=== PATIENT | female | born 1990 | race Caucasian/White ===

== ENCOUNTER 2022-10-12 16:33 | Inpatient (IN) | payer BC ==
[~2022-10-12 16:33] MED LIST: Bupivacaine/Epinephrine 0.25% 30 ML VIAL ONE; Lidocaine 2% PF 5 ML VIAL ONE
[2022-10-12] MEDS: Lactated Ringer's 1,000 ML IV SCH ×2 (17:05→20:23)
[2022-10-12] MEDS ORDERED: Penicillin G Potassium 5 MILL.UNITS in Sodium Chloride 0.9% 100 ML IVPB SCH (17:10)
[2022-10-12] MEDS ORDERED: hydrALAZINE 20 MG/ML VIAL SLOW IVP PRN (17:10)
[2022-10-12] MEDS ORDERED: Promethazine HCl 25 MG/ML VIAL IM PRN ×2 (17:10→21:12)
[2022-10-12] MEDS ORDERED: NS w/ Oxytocin 30 units 500 ML IV SCH ×2 (17:10)
[2022-10-12] MEDS ORDERED: Lidocaine 1% (PF) 30 ML VIAL SC PRN (17:10)
[2022-10-12] MEDS ORDERED: Butorphanol Tartrate 1 MG/ML VIAL SLOW IVP PRN (17:10)
[2022-10-12] MEDS ORDERED: HYDROcodone/Acetaminophen 5/325 mg Tablet PO PRN ×2 (17:10)
[2022-10-12] MEDS ORDERED: Ibuprofen 800 MG TAB PO PRN (17:10)
[2022-10-12] MEDS ORDERED: Sodium Chloride 0.9% 100 ML ONE (17:12)
[2022-10-12] MEDS ORDERED: Penicillin G Potassium 5 MILL.UNITS VIAL ONE (17:12)
[2022-10-12 17:22] VITALS: BMI 27.3
[2022-10-12 17:39] LABS: Hemoglobin 12.3 g/dL (12.0-15.5); Mean Corpuscular HGB CONC 33.6 g/dL (32.0-36.0); Mean Corpuscular Hemoglobin 27.4 pg (27.0-33.0); Mean Corpuscular Volume 81.5 fl (81.6-98.3); Mean Platelet Volume 10.7 fl (7.4-10.4); Platelet Count 284 10x3/uL (150-450); RBC Distribution Width 20.3 % (11.5-14.5); Red Blood Cell (RBC) Count 4.49 10x6/uL (3.90-5.03); White Blood Cell (WBC) Count 9.2 10x3/uL (3.5-10.5)
[2022-10-12 18:10] LABS: Syphilis Antibody Nonreactive (Nonreactive); Syphilis Antibody Index 0.04 S/CO (<1.00 Non-Reactive)
[2022-10-12 18:11] LABS: HBSAg Index 0.13 S/CO (0-0.99); Hep B Surf Ag Non-Reactive S/CO (NonReactive)
[2022-10-12] MEDS ORDERED: Fentanyl 2 mcg/Bup 0.1% Cadd 100 ML ONE (20:13)
[2022-10-12] MEDS ORDERED: Ondansetron PF 4 MG/2 ML Vial IVP PRN (21:12)
[2022-10-12] MEDS ORDERED: diphenhydrAMINE 50 MG/ML VIAL IVP PRN (21:12)
[2022-10-12] MEDS ORDERED: ePHEDrine Sulfate 50 MG/10 ML VIAL SLOW IVP PRN (21:12)
[2022-10-12] MEDS ORDERED: Lactated Ringer's 500 ML IV PRN (21:12)
[2022-10-12] MEDS ORDERED: Naloxone HCl 0.4 mg/ml Vial IVP PRN ×2 (21:12)
[2022-10-12] MEDS ORDERED: Acetaminophen 325 MG TAB PO PRN (21:12)
[2022-10-12] MEDS ORDERED: Moisturizing Cream (Eucerin) 113 GM JAR TOP PRN (21:12)
[2022-10-12] MEDS ORDERED: Fentanyl 2 mcg/Bupivacaine 0.1% Cassette 100 ML EPIDURAL SCH (21:15)
[2022-10-12] MEDS ORDERED: Communication Order-Pharmacy FS SCH (21:15)
[2022-10-12 21:58] LABS: SARS-CoV-2 NAA Rapid Test Not Detected (NotDetected)
[2022-10-12] MEDS: Penicillin G 2.5 MILL.units 2.5 MILL.UNITS in Premix Bag 1 BAG IVPB SCH (22:03)
[2022-10-13] MEDS ORDERED: Azithromycin 500 MG VIAL ONE (00:22)
[2022-10-13] MEDS ORDERED: CEFAZOLIN 2 GM VIAL ONE (00:22)
[2022-10-13] MEDS ORDERED: Famotidine/PF 20 mg/2ml Vial ONE (00:22)
[2022-10-13] MEDS: Lactated Ringer's 1,000 ML IV SCH (02:15)
[2022-10-13] MEDS: Penicillin G 2.5 MILL.units 2.5 MILL.UNITS in Premix Bag 1 BAG IVPB SCH (05:56)
[2022-10-13] MEDS: Ondansetron PF 4 MG/2 ML Vial IVP PRN ×2 (06:29→09:40)
[2022-10-13] MEDS ORDERED: Fentanyl 100 MCG/2 ML VIAL ONE (10:41)
[2022-10-13] MEDS ORDERED: Ketamine 50 MG/ML (10ML VIAL) ONE (10:41)
[2022-10-13] MEDS ORDERED: Oxytocin 10 UNITS/ML VIAL ONE ×2 (10:42→11:22)
[2022-10-13] MEDS ORDERED: Ketorolac Tromethamine 30 MG/ML VIAL ONE (10:43)
[2022-10-13] MEDS ORDERED: Lidocaine 2% MPF 10 ML AMP (For Epidural Use) ONE (10:43)
[2022-10-13] MEDS ORDERED: Morphine PF 10 MG/10 ML VIAL ONE (10:44)
[2022-10-13] MEDS ORDERED: Morphine 4 MG/ML VIAL ONE (10:44)
[2022-10-13] MEDS ORDERED: Famotidine/PF 20 mg/2ml Vial SLOW IVP PRN (10:49)
[2022-10-13] MEDS ORDERED: CEFAZOLIN 2 GM in Sodium Chloride 0.9% 100 ML IVPB SCH (11:00)
[2022-10-13] MEDS ORDERED: Azithromycin 500 MG in Sodium Chloride 0.9% 250 ML 250 ML IVPB SCH (11:00)
[2022-10-13] MEDS ORDERED: Ondansetron HCl/PF 4 MG/2 ML Vial IVP PRN (11:41)
[2022-10-13] MEDS ORDERED: HYDROmorphone 2 MG/ML VIAL SLOW IVP PRN (11:41)
[2022-10-13] MEDS ORDERED: Moisturizing Cream (Eucerin) 113 GM JAR TOP PRN (11:41)
[2022-10-13] MEDS ORDERED: diphenhydrAMINE 50 MG/ML VIAL IVP PRN (11:41)
[2022-10-13] MEDS ORDERED: Meperidine HCl/PF 25 MG/ML VIAL SLOW IVP PRN (11:41)
[2022-10-13] MEDS ORDERED: Promethazine HCl 25 MG SUPP PR PRN (11:41)
[2022-10-13] MEDS ORDERED: Promethazine HCl 25 MG/ML VIAL IM PRN (11:41)
[2022-10-13] MEDS ORDERED: Naloxone HCl 0.4 mg/ml Vial IVP PRN ×2 (11:41)
[2022-10-13] MEDS ORDERED: Fentanyl 100 MCG/2 ML VIAL SLOW IVP PRN (11:41)
[2022-10-13] MEDS ORDERED: Naloxone HCl 0.4 mg/ml Vial IV PRN (11:41)
[2022-10-13] MEDS ORDERED: Ondansetron PF 4 MG/2 ML Vial IVP PRN ×2 (11:41→15:10)
[2022-10-13] MEDS ORDERED: Communication Order-Pharmacy FS SCH (11:45)
[2022-10-13] MEDS ORDERED: Ketorolac Tromethamine 30 MG/ML VIAL IVP SCH (11:45)
[2022-10-13] MEDS ORDERED: diphenhydrAMINE 25 MG CAP PO PRN (15:10)
[2022-10-13] MEDS ORDERED: Boostrix 0.5 ML (Tdap) VIAL (>/=7 yrs of age) IM ONE (15:10)
[2022-10-13] MEDS ORDERED: Simethicone Chewable 80 MG TAB PO PRN (15:10)
[2022-10-13] MEDS ORDERED: Lanolin Ointment 7 GM TUBE TOP PRN (15:10)
[2022-10-13] MEDS ORDERED: hydrALAZINE 20 MG/ML VIAL SLOW IVP PRN (15:10)
[2022-10-13] MEDS ORDERED: Bisacodyl 10 MG SUPP PR PRN (15:10)
[2022-10-13] MEDS: Ketorolac Tromethamine 30 MG/ML VIAL IVP PRN (19:11)
[2022-10-13] MEDS ORDERED: HYDROcodone/Acetaminophen 5/325 mg Tablet PO PRN (23:45)
[2022-10-14] MEDS: Docusate 100 MG CAP PO SCH ×3 (03:31→21:18)
[2022-10-14] MEDS: Ferrous Sulfate 325 MG TAB PO SCH ×3 (03:31→21:13)
[2022-10-14] MEDS: Ibuprofen 800 MG TAB PO SCH ×2 (03:31→21:18)
[2022-10-14] MEDS: Ketorolac Tromethamine 30 MG/ML VIAL IVP PRN (04:29)
[2022-10-14 05:16] LABS: Hemoglobin 10.5 g/dL (12.0-15.5); Mean Corpuscular HGB CONC 32.6 g/dL (32.0-36.0); Mean Corpuscular Hemoglobin 27.1 pg (27.0-33.0); Platelet Count 219 10x3/uL (150-450); Red Blood Cell (RBC) Count 3.88 10x6/uL (3.90-5.03); White Blood Cell (WBC) Count 13.2 10x3/uL (3.5-10.5)
[2022-10-14] MEDS: Penicillin G 2.5 MILL.units 2.5 MILL.UNITS in Premix Bag 1 BAG IVPB SCH (08:11)
[2022-10-14] MEDS: Prenatal Vitamin 1 TAB PO SCH (08:49)
[2022-10-14] MEDS: HYDROcodone/Acetaminophen 5/325 mg Tablet PO PRN ×3 (11:19→21:17)
[2022-10-15] MEDS: Ibuprofen 800 MG TAB PO SCH (05:24)
[2022-10-15] MEDS: Prenatal Vitamin 1 TAB PO SCH (08:22)
[2022-10-15] MEDS: Ferrous Sulfate 325 MG TAB PO SCH (08:22)
[2022-10-15] MEDS: Docusate 100 MG CAP PO SCH (08:22)
[2022-10-15 08:54] VITALS: BP 110/70; TEMP 98
== END 2022-10-15 10:33 | disposition home or self-care (01) | DRG 788 ==
LOC: CSHLD 16:33 → CSHPP 10-13 20:45
PROVIDERS: ADMIT Obstetrics & Gynecology; ATTEND Obstetrics & Gynecology
PROC: 10D00Z1 Extraction of Products of Conception, Low, Open Approach (ICD-10-PCS; principal; 2022-10-13)
DX: O42.02 Full-term premature rupture of membranes, onset of labor within 24 hours of rupture (principal); Z37.0 Single live birth; Z3A.41 41 weeks gestation of pregnancy; O62.1 Secondary uterine inertia; O35.8XX0 Maternal care for other (suspected) fetal abnormality and damage, not applicable or unspecified; O32.4XX0 Maternal care for high head at term, not applicable or unspecified; Z20.822 Contact with and (suspected) exposure to COVID-19; O76 Abnormality in fetal heart rate and rhythm complicating labor and delivery; O99.824 Streptococcus B carrier state complicating childbirth; O48.0 Post-term pregnancy
CPT/HCPCS: 36415; 85027; 86780; 86850; 86900; 86901; 87340; J0456; J1885; J2001; J2270; J2274; J2405; J2540; J2590; J3010; J3490; J7120; S0028; U0002